=== PATIENT | male | born 1960 | race Caucasian/White ===

== ENCOUNTER 2017-05-09 08:58 | Day surgery (SDC) | payer OTHER ==
[~2017-05-09] VITALS: Ht 165.1 cm; Wt 73.0 kg
[~2017-05-09 08:58] MED LIST: 0.9% Sodium Chloride 1,000 ML IV SCH; Sodium Chloride LOK Flush 10 mL Syringe IV PRN; fentaNYL-PF 50 mCg/mL 2 mL Inj IVPUSH PRN
[2017-05-09 09:24] VITALS: BP 134/79; PULSE 60; RESP 16; O2SAT 97
[2017-05-09] MEDS ORDERED: MULT-666 PO (09:24)
[2017-05-09 09:50] VITALS: BP 100/67; PULSE 67; RESP 12; O2SAT 96
[2017-05-09 10:08] VITALS: BP 113/80; PULSE 64; RESP 12; O2SAT 96
[2017-05-09 10:12] VITALS: BP 111/83; PULSE 67; RESP 12; O2SAT 97
--- NOTE | 2017-05-09 10:57 | ENDO ---
[address] [address] ENDOSCOPY PROCEDURE PATIENT: GORDON LAIRD : 1960 MR#: [id number] ADMIT: 05/09/2017 JOB ID: [id number] DATE: 05/09/2017 PROCEDURE: Esophagogastroduodenoscopy. INDICATION: Chronic hepatitis C. Patient's ASA classification is two. Mallampati score is two. MEDICATIONS: 1. Versed 3 mg. 2. Fentanyl 75 mcg. INSTRUMENT USED: GIF-H190. PROCEDURE DETAILS: After informed consent was obtained, the patient was brought into the GI suite, where he was placed on oxygen via nasal cannula and monitored with continuous pulse oximeter, telemetry, and blood pressure monitoring. A time-out was performed. Then, he was placed in a left lateral decubitus position and medications were administered for sedation. A bite block was placed. The standard esophagogastroduodenoscopy scope was inserted through the bite block and advanced under direct visualization to the second portion of the duodenum without difficulty. FINDINGS: 1. Normal appearing duodenal bulb, first and second portion. 2. Normal-appearing pylorus, antrum, and gastric body. 3. Retroflexed views in the gastric body revealed a normal-appearing cardia and fundus. 4. The top of the gastric folds were at 37 cm. 5. From the top of the gastric folds extending 35 cm were two tongues of salmon colored mucosa suggestive of Layton's and multiple biopsies were obtained. Proximal 35 cm of mucosa appeared normal. 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 RECOMMENDATIONS: 1. Await biopsy results. 2. Follow up in GI clinic. COMPLICATIONS: None. ESTIMATED BLOOD LOSS: Less than 5 mL.
--- NOTE | 2017-05-10 10:43 | PATH ---
SURGICAL PATHOLOGY Attending Physician:Madan Carbajal CASE STATUS: Signed Out PATIENT NAME: GORDON LAIRD PID: [id number] : 1960 DATE COLLECTED:05/09/2017 16:44 SPECIMEN: Esophagus, Biopsy CLINICAL HISTORY: 1. ESOPHAGUS FINAL DIAGNOSIS: 1.ESOPHAGUS BIOPSY: SQUAMOUS MUCOSA AND GASTRIC CARDIA-TYPE MUCOSA, NEGATIVE FOR SPECIALIZED METAPLASIA OF CONDON' S-TYPE ESOPHAGUS. CHRONIC INFLAMMATION WITH REACTIVE EPITHELIAL CHANGES SUGGESTIVE OF CHRONIC REFLUX. Negative for dysplasia and malignancy. Negative for squamous intraepithelial eosinophils. ICD10 K21.0 GROSS DESCRIPTION: The specimen is received in one formalin filled container labeled with the patient's name, sublabeled "esophagus" and consists of 3 portions of tissue which aggregate to 0.4 x 0.3 x 0.3 CM. The specimen is entirely submitted in one cassette. 05/09/2017 DAC MICRO DESCRIPTION: See diagnosis. ICD-9 CODES: CPT CODES: 1: 37434 Electronically Signed Out Yariel Arora MD [facility] [address], [place] [address] Technical component performed at [facility], [address] [place] [address] Ave[address], [address]
== END 2017-05-09 23:59 | disposition home or self-care (01) ==
LOC: END 08:58
PROVIDERS: ATTEND Internal Medicine Gastroenterology
DX: K21.9 Gastro-esophageal reflux disease without esophagitis (principal); B18.2 Chronic viral hepatitis C; M54.16 Radiculopathy, lumbar region; F17.210 Nicotine dependence, cigarettes, uncomplicated
CPT/HCPCS: 43239; 88305; 99152; J2250; J3010; J7030